=== PATIENT | male | born 1970 | race Caucasian/White ===

== ENCOUNTER 2022-01-03 06:38 | Outpatient (REF) | payer OTHER, SELFPAY ==
[2022-01-03 07:00] LABS: MANUAL DIFF FLAG NO
[2022-01-03 07:17] LABS: Basophils Percent Auto 0.3 % (0-2); Eosinophils Absolute Auto 0.2 X10*3/uL (0.0-0.4); Eosinophils Percent Auto 3.3 % (0-4); Hematocrit 46.7 % (42.0-52.0); Imm Gran Abs Auto 0.01 X10*3/uL (0.00-0.03); Imm Gran Pct Auto 0.2 % (0.0-0.4); Lymphocytes Absolute Auto 1.5 X10*3/uL (1.2-4.9); Mean Corpuscular HGB Conc 34.3 g/dl (31.0-36.0); Mean Corpuscular Volume 90.5 fL (80.0-98.0); Mean Platelet Volume 9.9 fL (9.4-12.4); Monocytes Absolute Auto 0.6 X10*3/uL (0.1-1.2); Monocytes Percent Auto 8.5 % (2-11); Neutrophils Absolute Auto 4.3 x10*3/uL (2.0-8.3); Neutrophils Percent Auto 64.7 % (45-73); Platelet Count 221 X10*3/uL (160-400); Red Blood Count 5.16 X10*6/uL (4.60-5.80); Red Cell Distribution Width 12.2 % (11.0-16.0); White Blood Count 6.6 X10*3/uL (4.8-10.8)
[2022-01-03 07:22] LABS: Estimated Average Glucose 103 mg/dL; Hemoglobin A1c % 5.2 %
[2022-01-03 07:49] LABS: Alanine Aminotransferase 22 U/L (0-40); Albumin Level 4.2 g/dL (3.5-5.0); Alkaline Phosphatase 70 U/L (39-117); Anion Gap 11 (12-20); Aspartate Amino Transferase 20 U/L (5-37); Bilirubin Total 0.4 mg/dL (0.0-1.0); Blood Urea Nitrogen 19 mg/dL (9-16); Calcium 9.4 mg/dL (8.4-10.2); Carbon Dioxide 28 mmol/L (22-29); Chloride 104 mmol/L (96-108); Cholesterol 208 mg/dL; Estimated Glomerular Filt Rate > 60; Glucose Random 103 mg/dL (60-115); HDL Cholesterol 46 mg/dL; LDL Cholesterol Calculated 125 mg/dl; Potassium 4.8 mmol/L (3.3-5.1); Sodium 138 mmol/L (135-145); Total Protein 7.1 g/dL (6.5-8.0); Triglycerides 188 mg/dL
[2022-01-03 08:12] LABS: Free T4 (Free Thyroxine) 0.93 ng/dL (0.71-1.85); Prostate Specific Antigen Scr 0.14 ng/mL (<0.05-4.0); Thyroid Stimulating Hormone 0.75 uIU/mL (0.32-4.0)
[2022-01-03 08:56] LABS: Folate 8.9 ng/mL (> or = 4.0); Vitamin B12 171 pg/mL (200-900)
== END 2022-01-03 06:39 | disposition home or self-care (01) ==
LOC: HO.LAB 06:38
PROVIDERS: PCP Internal Medicine; Visit Provider Internal Medicine
DX: Z12.5 Encounter for screening for malignant neoplasm of prostate (principal); R73.02 Impaired glucose tolerance (oral); E78.00 Pure hypercholesterolemia, unspecified; I10 Essential (primary) hypertension
CPT/HCPCS: 36415; 80053; 80061; 82607; 82746; 83036; 84153; 84439; 84443; 85025

== ENCOUNTER 2022-07-26 06:54 | Outpatient (REF) | payer OTHER, SELFPAY ==
[2022-07-26 08:14] LABS: Alanine Aminotransferase 21 U/L (0-40); Albumin Level 4.4 g/dL (3.5-5.0); Alkaline Phosphatase 74 U/L (39-117); Anion Gap 13 (12-20); Aspartate Amino Transferase 19 U/L (5-37); Bilirubin Total 0.3 mg/dL (0.0-1.0); Blood Urea Nitrogen 18 mg/dL (9-16); Calcium 10.2 mg/dL (8.4-10.2); Carbon Dioxide 25 mmol/L (22-29); Chloride 106 mmol/L (96-108); Estimated Glomerular Filt Rate > 60; Glucose Random 112 mg/dL (60-115); Sodium 139 mmol/L (135-145); Total Protein 7.3 g/dL (6.5-8.0)
[2022-07-26 08:43] LABS: Folate 10.5 ng/mL (> or = 4.0); Vitamin B12 387 pg/mL (200-900)
[2022-07-30 22:08] LABS: Intrinsic Factor Antibodies Negative (Negative)
[2022-08-07 13:49] LABS: Parietal Cell Antibody 26.1 Unit (<=20.0)
== END 2022-07-26 06:55 | disposition home or self-care (01) ==
LOC: HO.LAB 06:54
PROVIDERS: Absent Provider Internal Medicine; PCP Internal Medicine; Visit Provider Nurse Practitioner Family
DX: E53.8 Deficiency of other specified B group vitamins (principal); I10 Essential (primary) hypertension
CPT/HCPCS: 36415; 80053; 82607; 82746; 83516; 86340

== ENCOUNTER 2023-01-18 10:33 | Day surgery (SDC) | payer OTHER, SELFPAY ==
--- NOTE | 2023-01-17 10:26 | HO.ANESPROP2 ---
HPI - Anesthesia Eval Consult details Narrative: 52yo M for?Colonoscopy PMFSH Active Problems Active Problems: All Active Problems (Updated 10/08/22 @ 09:53 by Estefany Ball MD) Anxiety (Acute) Low vitamin B12 level (Acute) Inguinal hernia bilateral, non-recurrent (Acute) Hemorrhoid (Acute) Colon cancer screening (Acute) Annual physical exam (Acute) Impaired glucose tolerance (Acute) Hypertension (Acute) Hypercholesterolemia (Acute) Past Medical History Medical History Hypercholesterolemia Hypertension Impacted cerumen of right ear Impaired glucose tolerance Pharyngitis Family History Family History Father Liver cancer Mother No problems noted. Brother Substance abuse Sister No problems noted. Son Adopted Daughter No problems noted. Daughter No problems noted. Surgical History Surgical History History of dental surgery Social History Social History Housing: Apartment Alcohol intake: current Patient Tobacco Use Status: Former Tobacco user Tobacco use type: Cigarette Years Smoked: quit 2015 e-Cigarette/Vaping Use: Never Used Second Hand Smoke Exposure: No service: No Current occupational status: employed Cognitive needs: No Hearing needs: No Vision needs: Yes Meds Allergies Allergy/AdvReac Type Severity Reaction Status Date / Time No Known Allergies Allergy Verified 01/30/23 08:28 Home Medications Medication Instructions Recorded Confirmed Last Taken Type ibuprofen 200 mg tablet (Motrin IB) 200 mg PO Q6H PRN Back Pain 11/27/21 01/18/23 01/16/23 History multivitamin (One-A-Day Essential 1 tab PO DAILY 11/27/21 01/18/23 01/07/23 History tablet) Exam Exam Date and Time: January 17, 2023 1026 Assessment and Plan Assessment Anesthesia Assessment: Chart Reviewed
[2023-01-18 11:28] VITALS: BMI 26.2
--- NOTE | 2023-01-18 11:36 | P.HPSUR_ITS ---
Pre-Procedural Eval Section A Date of Service: 01/18/23 The patient is an INPATIENT: No The History & Physical has been completed within 30 days and I have reviewed it.: No Section B Chief Complaint: screening for malignant neoplasm of colon Relevant Family History (Specify if Yes): No Relevant Social History: Tobacco Use (former smoker) Present Medications: see Short Stay Collaborative assessment Medical History: Significant History (hypertension, hypercholesterolemia) History of Previous Operations: Relevant previous surgery/procedure and date(s) (History of dental surgery) Allergies: Allergies Allergy/AdvReac Type Severity Reaction Status Date / Time No Known Allergies Allergy Verified 10/08/22 09:52 Review of Systems Sugical H&P ROS: Negative: Constitution, Cardiovascular, Respiratory and Gastroi ntestinal Exam Surgical H&P Exam: Normal: Heart, Normal: Lungs, Normal: Extremities and Normal: Abdomen Plan Diagnosis/Plan: Unchanged I have reviewed the history and physical and performed a pertinent physical examination on my patient. No changes have occurred unless specified. Time Spent With Patient Time: Total time managing care of this patient today ____ minutes.
[2023-01-18] MEDS: Lactated Ringers 1,000 ML 100 ML IVCONT (11:58)
--- NOTE | 2023-01-18 12:22 | HO.ANESPROP2 ---
[facility] Active Problems Active Problems: All Active Problems (Updated 10/08/22 @ 09:53 by Estefany Ball MD) Anxiety (Acute) Low vitamin B12 level (Acute) Inguinal hernia bilateral, non-recurrent (Acute) Hemorrhoid (Acute) Colon cancer screening (Acute) Annual physical exam (Acute) Impaired glucose tolerance (Acute) Hypertension (Acute) Hypercholesterolemia (Acute) Past Medical History Medical History Hypercholesterolemia Hypertension Impacted cerumen of right ear Impaired glucose tolerance Pharyngitis Family History Family History Father Liver cancer Mother No problems noted. Brother Substance abuse Sister No problems noted. Son Adopted Daughter No problems noted. Daughter No problems noted. Family history of problems with anesthesia: No Surgical History Surgical History History of dental surgery History of Problems with Anesthesia: No Social History Social History Housing: Apartment Alcohol intake: current Patient Tobacco Use Status: Former Tobacco user Tobacco use type: Cigarette Years Smoked: quit 2015 e-Cigarette/Vaping Use: Never Used Second Hand Smoke Exposure: No Use of substances other than those prescribed or required for medical reasons: Yes Substance Use Frequency: Weekly Are you DNR?: No Advance Directives: No Advance Directives Information Provided: Yes service: No Current occupational status: employed Cognitive needs: No Hearing needs: No Vision needs: Yes Meds Allergies Allergy/AdvReac Type Severity Reaction Status Date / Time No Known Allergies Allergy Verified 10/08/22 09:52 Active Medications: Current Medications Lactated Ringer's (Lr) 1,000 mls @ 100 mls/hr IVCONT .Q10H SALLY Last Admin: 01/18/23 11:58 Dose: 100 mls/hr Home Medications Medication Instructions Recorded Confirmed Last Taken Type ibuprofen 200 mg tablet (Motrin IB) 200 mg PO Q6H PRN Back Pain 11/27/21 01/18/23 01/16/23 History multivitamin (One-A-Day Essential 1 tab PO DAILY 05/09/22 06/30/23 06/19/23 History tablet) Exam Exam Date and Time: January 18, 2023 1222 Height,Weight and Vital Signs: Height 6 ft Weight 87.7 kg Airway Mallampati Class: II TM Dist: >3cm Neck ROM: Full Heart: RRR Lungs: CTA Assessment and Plan Final Anesthetic Review Family History of Problems with Anesthesia: No History of Problems with Anesthesia: No NPO: Yes ASA Class: II Final Preanesthetic Review: Meds/Allgs Chart Reviewed, Consent Obtained/Reviewed and Anes Risks/Benef Reviewed Patient Risk: Low Procedure Risk: Low Anesthetic Plan Anesthetic Plan: MAC: Disposition: Standard PACU
--- NOTE | 2023-01-18 12:35 | W.PM.OPN ---
Operative Note Operative Note Date of Service: 01/18/23 Narrative: COLONOSCOPY TILL CECUM WITH SNARE POLYPECTOMY, SUBMUCOSAL INJECTION AND HEMOCLIP PLACEMENT Pre-op diagnosis: Colon cancer screening Post-op diagnosis:? colon polyps, diverticulosis, hemorrhoids Endoscopist:? Hannah Holman MD Anesthesia:?MAC Consent: Indications for the procedure and potential complications of bleeding, perforation, reaction to medications and missed diagnosis were discussed with the patient and informed consent was obtained. Instrument: Olympus CF H 190 L variable stiffness adult colonoscope Monitoring: Vital signs and clinical assessment, intermittent blood pressure monitoring, continuous EKG monitoring, Pulse oximetry and Carbon Dioxide monitoring were done throughout the procedure. Please see anesthesia flowsheet. Colon withdrawl time was 25 minutes. Procedure: The patient was placed in the left lateral decubitis position and pre-procedure medications were administered. After a digital rectal examination of the ano-rectum, the video colonoscope was inserted into the rectum and advanced through the colon to the cecum. The colonoscope was slowly withdrawn in a retrograde panoramic fashion and the colon mucosa was carefully examined including a retroflexed view of the rectum. Findings and interventions are described below. Procedure Difficulty: Without difficulty Findings: Terminal Ileum: Not evaluated Cecum: Normal Ascending Colon: Normal Transverse Colon: Normal Descending Colon: Moderate diverticulosis Sigmoid Colon: A 3 cms pedunculated polyp at 25 cms - removed with a hot snare. Polypectomy site was closed with one hemoclip and marked by román ink. Moderate diverticulosis Rectum: One 10 mm diminutive appearing polyp - removed with a cold snare Ano-rectum: Moderate internal hemorrhoids Colon preparation: Excellent Impression and Post Procedure Diagnosis: Colonoscopy Findings: One large and one medium sized polyps removed Moderate diverticulosis seen in the left colon Moderate hemorrhoids on retroflexed exam. Plan: Await pathology results Patient has an appointment on 01/30/23 in the GI Clinic with Carmella Michaud NP. Repeat Colonoscopy interval based on path results - in 3 years if polyps are adenomatous and 10 years if polyps are hyperplastic. FU flexible sigmoidoscopy in 3-4 months to check polypectomy site in the sigmoid colon at 25 cms (OK to use fleet enemas for flex sig prep since polyp was completely excised on biopsy). Above findings were reviewed with the patient and colon polyps and diverticulosis handouts were given in the discharge area BIOPSIES SHOWED: A.? Colon, sigmoid, polyp at 25 cm:? Tubulovillous adenoma with entrapped glands, completely excised; negative for high-grade dysplasia and carcinoma.? B.? Colon, rectal polyp:? Hyperplastic polyp.
[2023-01-18 13:28] VITALS: BP 131/90; PULSE 62; RESP 16; TEMP 36.4; O2SAT 99
[2023-01-18 13:43] VITALS: BP 140/93; PULSE 53; RESP 18; TEMP 36.1; O2SAT 100
== END 2023-01-18 14:15 | disposition home or self-care (01) ==
PROVIDERS: PCP Internal Medicine; Visit Provider Internal Medicine Gastroenterology
PROC: 0DJD8ZZ Inspection of Lower Intestinal Tract, Via Natural or Artificial Opening Endoscopic (ICD-10-PCS; CPT 45378; principal; 2023-01-18 12:20)
DX: Z12.11 Encounter for screening for malignant neoplasm of colon (principal); D12.5 Benign neoplasm of sigmoid colon; K62.1 Rectal polyp; K57.30 Diverticulosis of large intestine without perforation or abscess without bleeding; K64.8 Other hemorrhoids; I10 Essential (primary) hypertension; E78.00 Pure hypercholesterolemia, unspecified; R73.01 Impaired fasting glucose; Z79.1 Long term (current) use of non-steroidal anti-inflammatories (NSAID); Z79.899 Other long term (current) drug therapy; Z87.891 Personal history of nicotine dependence
CPT/HCPCS: 45385; 45381; 88305

== ENCOUNTER 2023-01-30 08:15 | Outpatient (AMB) | payer OTHER, SELFPAY ==
--- NOTE | 2023-01-30 08:22 | A.OFFVIS_ITS ---
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 No bowel or upper GI? problems No ID problems He denies any cardiac or respiratory problems There is no known FHX crc or polyps. ? ? ? Medications: New peg 3350-electroly demetrius 236-22.74-6.74 -5.86 gram (Golyt tomas) ?? until feca l effluent is john r; do not exceed a total volume of 2 ,000 mL 240 mL? PO Q10M 1 day 4,000 mL 0RF Z12.11 - Encounter for screening for malignant neoplas m of colon COLONOSCOPY 01/18/23 Findings: Terminal Ileum: Not evaluated Cecum:? Normal Ascending Colon:? Normal Transverse Colon:? Normal Descending Colon:? Moderate diverticulosis Sigmoid Colon:? A 3 cms pedunculated polyp at 25 cms - removed with a hot snare. Polypectomy site was closed with one hemoclip and marked by román ink. Moderate diverticulosis Rectum:? One 10 mm diminutive appearing polyp - removed with a cold snare Ano-rectum:? Moderate internal hemorrhoids Colon preparation: Excellent ? Impression and Post Procedure Diagnosis: Colonoscopy Findings: ?One large and one medium sized polyps removed Moderate diverticulosis seen in the left colon Moderate hemorrhoids on retroflexed exam. Plan: Await pathology results Patient has an appointment on 01/30/23 in the GI Clinic with? Carmella Michaud, SHIRT B[employer]ER. Repeat Colonoscopy interval based on path results - in 3 years if polyps are adenomatous and 10 years if polyps are hyperplastic.? FU flexible sigmoidoscopy in 3-4 months to check polypectomy site in the sigmoid colon at 25 cms (OK to use fleet enemas for flex sig prep since polyp was completely excised on biopsy). Above findings were reviewed with the patient and colon polyps and diverticulosis handouts were given in the discharge area BIOPSIES SHOWED: A.? Colon, sigmoid, polyp at 25 cm:? Tubulovillous adenoma with entrapped glands, completely excised; negative for high-grade dysplasia and carcinoma.? B.? Colon, rectal polyp:? Hyperplastic polyp. TODAY'S VISIT The procedure needs to be repeated in 3-4 months due to the finding of a tubulovillous adenoma in the sigmoid colon.. The procedure was well tolerated. The results were explained and the patient is agreeable to the follow-up interval as stated. The bowel pattern has returned to normal. Education was provided to tell any 1st degree relatives about their findings to be sure that they are screened by age 45. Educated that they will be put on a recall list when it is time for their repeat scope but should they move out of state or away from the hospital they will need to remember along with their primary to repeat the procedure in a timely fashion to avoid any adverse complications. I will see him after his next procedure. [facility] Medical History Hypercholesterolemia Hypertension Impacted cerumen of right ear Impaired glucose tolerance Pharyngitis Surgical History History of dental surgery Family History Father Liver cancer Mother No problems noted. Brother Substance abuse Sister No problems noted. Son Adopted Daughter No problems noted. Daughter No problems noted. Social History Housing: Apartment Alcohol intake: current Patient Tobacco Use Status: Former Tobacco user Tobacco use type: Cigarette Years Smoked: quit 2015 e-Cigarette/Vaping Use: Never Used Second Hand Smoke Exposure: No service: No Current occupational status: employed Cognitive needs: No Hearing needs: No Vision needs: Yes Review of Systems Const Denies fatigue, Denies fever(s), Denies night sweats, Denies poor appetite and Denies weight loss Eyes Details: glasses Reports requires corrective lenses ENT Reports Normal hearing present, Denies dental pain, Denies dysphagia, Denies hearing loss, Denies mouth pain, Denies odynophagia, Denies throat swelling, Denies tongue swelling and Reports other (Dentition adequate) Card Reports no additional complaints Resp Reports no additional complaints GI Denies abdominal pain, Denies melena, Denies bloating, Denies hematochezia, Denies constipation, Denies GI cramping, Denies dysphagia, Denies excessive flatus, Denies early satiety, Denies heartburn, Denies diarrhea, Denies nausea, Denies odynophagia, Denies vomiting and Denies hematemesis Skin/Breast Denies pruritus, Denies lesions, Denies rash and Denies jaundice Neuro Reports Normal hearing present and Denies Abnormal speech present Endo Denies fatigue Aller/Immun Denies throat swelling and Denies tongue swelling Physical Exam Vital Signs: Last Vital Signs Pulse 66 01/30/23 08:28 BP 144/87 H 01/30/23 08:28 BMI result Body Mass Index 24.4 Const General: cooperative, no acute distress, well developed and well groomed Nutritional Appearance: average body habitus and well nourished Orientation/consciousness: oriented to person, oriented to place and oriented to time Limitations: No language barrier HEENT Head: Yes normocephalic and Yes atraumatic Eyes General: appearance normal, both eyes and all related structures Pupils: Equal, round and reactive pupils present Neck Neck: Yes normal visual inspection and Yes no lymphadenopathy Thyroid: Thyroid normal Resp Effort & Inspection: normal respiratory effort and able to speak in complete sentences Auscultation: clear to auscultation bilaterally Cardio Rate: regular rate Rhythm: regular rhythm Heart sounds: Normal, physiologic split S2 sound present Peripheral pulses: radial pulses present and posterior tibial pulses present GI Inspection: No distended and No Abdominal panniculus present Palpation (GI): Soft to palpation, nontender, no guarding, not rigid and No hepatosplenomegaly present Percussion: Yes normal to percussion Auscultation: normal bowel sounds Rectal Exam - Male: Yes deferred Skin General skin exam: no rashes or lesions noted, turgor normal, skin not dry, no jaundice, No spider nevi and no striae Rashes: no rashes Nails: normal Neuro General: oriented to person, oriented to place and oriented to time Cranial nerves: Yes Equal, round and reactive pupils present and Yes Normal hearing present Speech: No Abnormal speech present Extrem General: Yes normal to inspection, No clubbing, No cyanosis and No edema Psych Appearance: grossly normal and well kempt Mental Status: mental status grossly normal Speech and movement: Normal speech and movement present Affect: normal affect Attitude: cooperative Thought process: Normal thought process present and not confabulating Thought content: Normal thought content present Insight: Fair insight present (Psych) Judgement: Fair judgement present (Psych) Assessment & Plan Assessment & Plan (1) Tubulovillous adenoma of colon: Comment: 2022 scope repeat 3-4 months Code(s): D12.6 - Benign neoplasm of colon, unspecified Plan: The procedure needs to be repeated in 3-4 months due to the finding of a tubulovillous adenoma in the sigmoid colon.. The procedure was well tolerated. The results were explained and the patient is agreeable to the follow-up interval as stated. The bowel pattern has returned to normal. Education was provided to tell any 1st degree relatives about their findings to be sure that they are screened by age 45. Educated that they will be put on a recall list when it is time for their repeat scope but should they move out of state or away from the hospital they will need to remember along with their primary to repeat the procedure in a timely fashion to avoid any adverse complications. I will see him after his next procedure. Coding Level of Care Code Est Pt Level 3 (37253) Diagnoses Tubulovillous adenoma of colon D12.6
[2023-01-30 08:28] VITALS: BP 144/87; PULSE 66; BMI 24.4
== END 2023-01-30 08:42 | disposition home or self-care (01) ==
PROVIDERS: PCP Internal Medicine; Visit Provider Nurse Practitioner
DX: D12.6 Benign neoplasm of colon, unspecified (principal)
CPT/HCPCS: 99213

== ENCOUNTER → 2023-01-30 08:15 | Outpatient (BNVA) | payer OTHER, SELFPAY | PROVIDERS: PCP Internal Medicine; Visit Provider Nurse Practitioner ==

== ENCOUNTER → 2023-01-31 11:26 | Outpatient (BNVA) | payer OTHER, SELFPAY | PROVIDERS: PCP Internal Medicine; Visit Provider Physician Assistant | DX: M25.512 Pain in left shoulder (principal) | CPT/HCPCS: 99204 ==

== ENCOUNTER → 2023-02-06 10:23 | Outpatient (BNVA) | payer OTHER, SELFPAY | PROVIDERS: PCP Internal Medicine; Visit Provider Physician Assistant | DX: M24.812 Other specific joint derangements of left shoulder, not elsewhere classified (principal) | CPT/HCPCS: 99214 ==

== ENCOUNTER → 2023-02-22 09:52 | Outpatient (BNVA) | payer OTHER, SELFPAY | PROVIDERS: PCP Internal Medicine; Visit Provider Internal Medicine | DX: M24.812 Other specific joint derangements of left shoulder, not elsewhere classified (principal) | CPT/HCPCS: 99213 ==

== ENCOUNTER 2023-03-07 10:18 | Outpatient (REF) | payer OTHER, SELFPAY ==
--- NOTE | ~2023-03-07 | XR_ITS ---
EXAMINATION: XR SHOULDER, LEFT CLINICAL INFORMATION: Pain. COMPARISON: Radiographs dated 01/31/2023. TECHNIQUE: AP neutral and scapular Y views of the left shoulder are submitted. FINDINGS: Bony alignment and mineralization are normal. The glenohumeral joint is intact and shows mild osteoarthritic change. The acromioclavicular and coracoclavicular intervals are normal. There is moderate osteoarthritic change of the left acromioclavicular joint. No fracture or dislocation is seen. There is no soft tissue calcifications foreign body. No left pneumothorax is seen. XR/XR shoulder LT min 2V IMPRESSION: 1. There is mild osteoarthritic change of the left glenohumeral joint, and moderate osteoarthritic change is seen of the left acromioclavicular joint. 2. No fracture or dislocation is seen.
== END 2023-03-07 10:19 | disposition home or self-care (01) ==
LOC: HO.HOSX 10:18
PROVIDERS: Visit Provider Orthopaedic Surgery
DX: M25.512 Pain in left shoulder (principal)
CPT/HCPCS: 73030; 99202

== ENCOUNTER 2023-03-07 11:19 | Outpatient (AMB) | payer OTHER, SELFPAY ==
[2023-03-07 11:31] VITALS: BMI 24.3
--- NOTE | 2023-03-07 11:31 | MHC.OFFVIS ---
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 States he was closing the dumpster lid and felt a ripped in his shoulder. Seen with work [employer] same day who ordered xrays and Rx'd P.T. States he also has an MRI appt on 03/15/23. Currently states he has limited ROM and weakness. He has been going to formal physical therapy which gives him only mild relief. He has also tried Tylenol and anti-inflammatory medicines which gave him minimal relief. The patient states that he has difficulty sleeping at night because of his pain. The patient reports weakness with lifting his left hand above shoulder height. Allergies No Known Allergies Allergy (Verified 03/07/23 11:32) Medication List - Last Reconciled 03/07/23 by Wilbur Girard MD ibuprofen (Motrin IB) 200 mg PO Q6H PRN ibuprofen 800 mg PO TID lisinopril 10 mg PO DAILY multivitamin (One-A-Day Essential tablet) 1 tab PO DAILY PFSH Medical History Hypercholesterolemia Hypertension Impacted cerumen of right ear Impaired glucose tolerance Pharyngitis Surgical History History of dental surgery Family History Father Liver cancer Mother No problems noted. Brother Substance abuse Sister No problems noted. Son Adopted Daughter No problems noted. Daughter No problems noted. Social History (Updated 03/07/23 @ 11:32 by MOHIT Laura) Housing: Apartment Alcohol intake: current Patient Tobacco Use Status: Former Tobacco user Tobacco use type: Cigarette Years Smoked: quit 2015 e-Cigarette/Vaping Use: Never Used Second Hand Smoke Exposure: No service: No Current occupational status: employed Current occupation: [employer] Cognitive needs: No Hearing needs: No Vision needs: Yes Physical Exam Vital Signs: BMI result Body Mass Index 24.3 Const Other: Well-nourished well-developed very friendly male awake alert and oriented x3 in no acute distress Extrem Other: Bilateral upper extremity examination shows good capillary refill, no skin lesions noted, normal sensation light touch Left shoulder examination shows decreased range of motion when compared his shoulder, 4/5 strength with supraspinatus testing, positive impingement signs, tenderness over his acromioclavicular joint, no instability Results Reviewed Results Reviewed: X-rays of the patient's left shoulder show severe acromioclavicular joint narrowing, a type 2 acromion, no acute bony abnormalities Assessment & Plan Assessment & Plan (1) Left shoulder pain: Code(s): M25.512 - Pain in left shoulder Plan Mr. Odonnell presents with left shoulder pain possibly due to a full-thickness rotator tear. I agree with the plan for the patient to have an MRI as scheduled next week. I will contact him by phone once the MRI results are available. He will continue with his physical therapy exercises in meantime. I spent 22 minutes in reviewing the patient's records and imaging studies, seeing the patient and documenting in the medical record. Orders: Orders XR shoulder LT min 2V 03/07/23 M25.512 - Pain in left shoulder Medications: New oxycodone-acetaminophen 5-325 mg (Percocet) Partial Fill upon patient request. 1 tab PO Q12H PRN 30 tabs 0RF pain Coding Level of Care Code New Pt Level 2 (64494) Diagnoses Left shoulder pain M25.512
== END 2023-03-07 12:03 | disposition home or self-care (01) ==
PROVIDERS: PCP Internal Medicine; Visit Provider Orthopaedic Surgery
DX: M25.512 Pain in left shoulder (principal)
CPT/HCPCS: 99202

== ENCOUNTER 2023-03-15 14:27 | Outpatient (REF) | payer OTHER, SELFPAY ==
--- NOTE | ~2023-03-15 | MR_ITS ---
EXAMINATION: MR SHOULDER WITHOUT CONTRAST, LEFT CLINICAL INFORMATION: Left shoulder pain. Derangement. Rotator cuff tendon tear. COMPARISON: Most recent left shoulder radiographs dated 03/07/2023. TECHNIQUE: Multisequence MR imaging of the left shoulder was obtained without contrast on a high field strength scanner. FINDINGS: ROTATOR CUFF: Mild supraspinatus tendinosis. There is focal insertional intrasubstance partial tearing measuring 0.4 x 0.4 cm with linear extension proximally within the supraspinatus tendon fibers. No full-thickness rotator cuff tendon tear. No muscle atrophy or fatty infiltration. BICEPS: Intact. CORACOACROMIAL ARCH: The undersurface of the acromion is curved with no subacromial spur. Severe acromioclavicular osteoarthritis. LABRUM/CAPSULE: Heterogeneity within the posterosuperior labrum which could represent normal variation versus mild degeneration. No displaced tear. GLENOHUMERAL JOINT/MARROW: Intact articular cartilage. Focal degenerative cystic change within the greater tuberosity. MR/MR shoulder LT wo con IMPRESSION: 1. Mild supraspinatus tendinosis with focal insertional intrasubstance partial tearing measuring 0.4 x 0.4 cm with linear extension proximally within the tendon fibers. No full-thickness rotator cuff tendon tear. 2. Severe acromioclavicular osteoarthritis. 3. Heterogeneity within the posterosuperior labrum which could represent normal variation versus mild degeneration. No displaced labral tear.
== END 2023-03-15 14:28 | disposition home or self-care (01) ==
LOC: HO.MRI 14:27
PROVIDERS: PCP Internal Medicine; Visit Provider Physician Assistant Medical
DX: M75.102 Unspecified rotator cuff tear or rupture of left shoulder, not specified as traumatic (principal)
CPT/HCPCS: 73221

== ENCOUNTER → 2023-03-19 08:08 | Outpatient (BNVA) | payer OTHER, SELFPAY | PROVIDERS: PCP Internal Medicine; Visit Provider Internal Medicine | DX: M25.512 Pain in left shoulder (principal) | CPT/HCPCS: 99213 ==

== ENCOUNTER 2023-03-20 10:16 | Outpatient (AMB) | payer OTHER, SELFPAY ==
--- NOTE | 2023-03-20 10:17 | A.OFFVIS_ITS ---
Intake Vital Signs 03/20/23 10:18 Height 6 ft Weight 179 lb BMI 24.3 Intake Visit Reasons: OV-left shoulder injection Intake Note: Colton is a 52 year old right hand dominant male who presents with complaints of left shoulder pain. He describes his pain as sharp in nature. He did injure his shoulder while working when he was closing a dumpster lid. He has tried Tylenol and anti-inflammatory medicines which gave him minimal relief. He has also done stretching exercises which gave him only mild relief. Allergies No Known Allergies Allergy (Verified 03/20/23 10:21) Medication List - Last Reconciled 03/20/23 by Wilbur Girard MD ibuprofen (Motrin IB) 200 mg PO Q6H PRN ibuprofen 800 mg PO TID lisinopril 10 mg PO DAILY multivitamin (One-A-Day Essential tablet) 1 tab PO DAILY oxycodone-acetaminophen 5-325 mg (Percocet) 1 tab PO Q12H PRN PFSH Medical History Hypercholesterolemia Hypertension Impacted cerumen of right ear Impaired glucose tolerance Pharyngitis Surgical History History of dental surgery Family History Father Liver cancer Mother No problems noted. Brother Substance abuse Sister No problems noted. Son Adopted Daughter No problems noted. Daughter No problems noted. Social History Housing: Apartment Alcohol intake: current Patient Tobacco Use Status: Former Tobacco user Tobacco use type: Cigarette Years Smoked: quit 2015 e-Cigarette/Vaping Use: Never Used Second Hand Smoke Exposure: No service: No Current occupational status: employed Current occupation: [employer] Cognitive needs: No Hearing needs: No Vision needs: Yes Physical Exam Vital Signs: BMI result Body Mass Index 24.3 Const Other: Well-nourished well-developed very friendly male awake alert and oriented x3 in no acute distress Extrem Other: Left shoulder examination shows almost full range of motion when compared to his right shoulder, 4+ out of 5 strength with supraspinatus testing, positive impingement signs, tenderness over his acromioclavicular joint, no instability Office Procedures Joint Injection/Drain Joint Injection/Drain Primary Site: left shoulder Prep: site was prepped using aseptic technique Injected: 40 mg of, Kenalog and 1% plain lidocaine Procedure: The patient tolerated the procedure well Coding 30239 - Large joint Procedure code (CPT) selection complete Results Reviewed Results Reviewed: 03/20/23 10:17 Lidocaine HCl 2 % MPF [Xylocaine 2 % MPF] 5 ml .ROUTE .STK-MED ONE Triamcinolone Acetonide [Kenalog-40] 40 mg .ROUTE .STK-MED ONE MRI of the patient's left shoulder show severe acromioclavicular joint narrowing, type 2 acromion, signal change within the supraspinatus tendon due to rotator cuff tendinosis versus partial-thickness tearing, no full-thickness rotator cuff tear noted Assessment & Plan Assessment & Plan (1) Impingement syndrome of left shoulder: Code(s): M75.42 - Impingement syndrome of left shoulder Plan Mr. Odonnell presents with right shoulder pain due to impingement syndrome, acromioclavicular joint arthritis and rotator cuff tendinosis versus partial- thickness tearing. I had a lengthy discussion with the patient regarding the treatment options. The risks and benefits of a cortisone injection were discussed at length with the patient. The patient wished to proceed. Patient tolerated the left shoulder subacromial cortisone injection well. He will continue with his home stretching program to prevent stiffness. He will contact me prior to his follow-up appointment in 2-3 months should any questions or concerns arise. Feel free to call me at any time should questions regarding his orthopedic management arise. I spent 22 minutes in reviewing the patient's records and imaging studies, seeing the patient and documenting in the medical record. Orders: Orders AMB Joint Injection/Aspiration Today M75.42 - Impingement syndrome of left shoulder Coding Level of Care Code Est Pt Level 2 (90219) Diagnoses Impingement syndrome of left shoulder M75.42 CPT Codes Coding - 70620 Large joint: 68385 - Large joint ([id number])
[2023-03-20 10:18] VITALS: BMI 24.3
== END 2023-03-20 10:47 | disposition home or self-care (01) ==
PROVIDERS: PCP Internal Medicine; Visit Provider Orthopaedic Surgery
DX: M75.42 Impingement syndrome of left shoulder (principal)
CPT/HCPCS: 20610; 99214

== ENCOUNTER → 2023-03-20 10:16 | Outpatient (BNVA) | payer OTHER, SELFPAY | PROVIDERS: PCP Internal Medicine; Visit Provider Orthopaedic Surgery | DX: M75.42 Impingement syndrome of left shoulder (principal) | CPT/HCPCS: 20610; J3301 ==

== ENCOUNTER 2023-03-21 07:00 | Outpatient (RCR) | payer OTHER, SELFPAY ==
--- NOTE | 2023-02-08 12:23 | MHC.PT.EP ---
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 HE WORKS FULL-TIME IN [employer] FOR [employer] -> HE HAS BEEN OOW SINCE HIS INJURY. OBJECTIVELY, THE Pt HAS DECR POSTURAL AWARENESS, LIMITED ROM IN HIS LEFT SH, PAIN LIMITING STRENGTH OF LEFT SH COMPLEX, AND (+) Lt SH NEER'S/ SUSAN'S LOGAN ROSANNE/EMPTY CAN TESTS. HE HAS (+) TTP TO Lt ANT GH, Lt AC Jt, AND Lt POSTERIOR RC (TERES, INFRASPINATUS). FUNCTIONALLY, THE Pt IS OOW LIGHT DUTY UNAVAIL, DECR SLEEPING, LIMITED LIFTING, OPERATING TOOLS, REACHING-> SPONTANEOUS MOTIONS DUE TO PAIN IN Lt ANT GH AND POST RC. THE Pt IS AWAITING AN MRI-> HE WOULD BENEFIT FROM PT TO ADDRESS PAIN, ROM AND STRENGTH DEFICITS (TERES, SUBSCAP,INFRASPIN), AND GUIDE HIM IN MEETING HIS GOALS OF RTW AND REG ADLs. Frequency and Duration: The patient will be seen 2 x WK x 8 WKS Short Term Goals: *Pt'S Lt SH PAIN DECR TO 2-09/28 *Pt INDEP SELF-CORRECT POSTURE TO REDUCE Lt SH MECH STRESS *Pt DEMON IMPROVED AAROM-> AAROM Lt SH (-) Lt NEER'S, IMPROVED SUSAN'S SIGN LEFT Coating Manager Goals: *Pt INDEP HEP PROGR AND SELF-SX MGMT STRATEGIES FOR Lt SH Pt GRAD RESUME REG ADLs AND ULTIMATE GOAL OF RTW-> IMPROVED SPADI (AT EVAL 86/130) *Pt ACHIEVE WFL STRENGTH IN Lt SH COMPLEX/ SCAP REGION Treatment Plan: Modalities to reduce pain, spasms and effusion. Manual therapy to restore motion and function. Therapeutic exercise to improve strength and flexibility. Neuromuscular re-education for posture and balance. Therapeutic activities to return to functional activities of daily living. Electronically signed by: CANDE WEST PT Please sign and return to therapist. Thank you for your referral.
--- NOTE | 2023-03-21 10:43 | MHC.PT.DC ---
[facility] [place] Office [place] Office [place] Office [address] Brayden Ferris [address] [phone] F: [phone] F: [phone] F: [phone] F: [phone] Physical Therapy Discharge Report Diagnosis: LEFT RC INJURY Date of Surgery: Date of Evaluation: 02/08/23 Date of Discharge: 03/21/23 Treatments to Date: 11 Cancellations to Date: 1 No Shows to Date: 0 Discharge Status: Improved Function Independent with HEP Physician Discontinued Tx Discharge Summary: THE Pt HAS MET HIS PT GOALS TO MAX POTENTIAL AT THIS TIME - HE HAD A RECENT ORTHO F/U AND LEFT SH INJECTION - HE IS CLEARED TO RTW IN [address] BENAVIDES, THE Pt IS DISCHARGED FROM PT AT THIS TIME W HIS HEP, MORE EFFICIENT BILAT POST RC/SCAPULAR STAB, AND IMPROVED POSTURAL/ BODY MECH AWARENESS. Electronically signed by: CANDE WEST,PT Please sign and return to therapist. Thank you for your referral.
== END 2023-03-21 10:43 | disposition home or self-care (01) ==
LOC: HO.PT 07:00
PROVIDERS: PCP Internal Medicine; Visit Provider Physician Assistant
DX: S46.002D Unspecified injury of muscle(s) and tendon(s) of the rotator cuff of left shoulder, subsequent encounter (principal)
CPT/HCPCS: 97033; 97035; 97110; 97140; 97162; 97530

== ENCOUNTER → 2023-04-01 11:13 | Outpatient (BNVA) | payer OTHER, SELFPAY | PROVIDERS: PCP Internal Medicine; Visit Provider Internal Medicine ==

== ENCOUNTER 2023-05-22 09:10 | Outpatient (AMB) | payer OTHER, SELFPAY ==
--- NOTE | 2023-05-22 09:12 | A.OFFVIS_ITS ---
Intake Intake Visit Reasons: OV-left shoulder F/U Intake Note: Colton is a 52 year old male who presents today for a follow up of his left shoulder left shoulder W/C injury DOI 01/31/2023. last injection was done 03/20/23. Injection was helpful for about a month. He reports that he has incre ased pain with cold and rainy weather. He continues taking ibuprofen which gives him mild relief. He continues with his range of motion exercises to prevent further stiffness. Allergies No Known Allergies Allergy (Verified 05/22/23 09:14) Medication List - Last Reconciled 05/22/23 by Wilbur Girard MD ibuprofen (Motrin IB) 200 mg PO Q6H PRN ibuprofen 800 mg PO TID lisinopril 10 mg PO DAILY multivitamin (One-A-Day Essential tablet) 1 tab PO DAILY oxycodone-acetaminophen 5-325 mg (Percocet) 1 tab PO Q12H PRN PFSH Medical History Hypercholesterolemia Hypertension Impacted cerumen of right ear Impaired glucose tolerance Pharyngitis Surgical History History of dental surgery Family History Father Liver cancer Mother No problems noted. Brother Substance abuse Sister No problems noted. Son Adopted Daughter No problems noted. Daughter No problems noted. Social History Housing: Apartment Alcohol intake: current Patient Tobacco Use Status: Former Tobacco user Tobacco use type: Cigarette Years Smoked: quit 2015 e-Cigarette/Vaping Use: Never Used Second Hand Smoke Exposure: No service: No Current occupational status: employed Current occupation: [employer] Cognitive needs: No Hearing needs: No Vision needs: Yes Physical Exam Extrem Other: Left shoulder examination shows decreased range of motion when compared to his right shoulder, positive impingement signs Assessment & Plan Assessment & Plan (1) Impingement syndrome of left shoulder: Code(s): M75.42 - Impingement syndrome of left shoulder Plan: Mr. Odonnell presents with left shoulder pain and stiffness due to impingement syndrome, acromioclavicular joint arthritis and adhesive capsulitis. I had a lengthy discussion with the patient regarding the treatment options. At this point we will hold off on a not other cortisone injection because his last injection was on March 20. He will continue with his range of motion e xercises to prevent further stiffness. I will see him back in the beginning of June for repeat clinical examination. At that time we will further discuss another cortisone injection versus possible arthroscopic surgery. Feel free to call me at any time should questions regarding his orthopedic management arise. I spent 15 minutes in reviewing the patient's records and imaging studies, jasper patton the patient and documenting in the medical record. Coding Level of Care Code Est Pt Level 1 (51344) Diagnoses Impingement syndrome of left shoulder M75.42
== END 2023-05-22 09:26 | disposition home or self-care (01) ==
PROVIDERS: PCP Internal Medicine; Visit Provider Orthopaedic Surgery
DX: M75.42 Impingement syndrome of left shoulder (principal)
CPT/HCPCS: 99212

== ENCOUNTER → 2023-05-22 09:10 | Outpatient (BNVA) | payer OTHER, SELFPAY | PROVIDERS: PCP Internal Medicine; Visit Provider Orthopaedic Surgery | DX: M75.42 Impingement syndrome of left shoulder (principal) | CPT/HCPCS: 99211 ==

== ENCOUNTER 2023-07-09 06:32 | Day surgery (SDC) | payer OTHER, SELFPAY ==
[2023-07-09 06:36] VITALS: BMI 24.0
[2023-07-09] MEDS: Sodium Phosphate,Mono-Dibasic 133 ML ENEMA PR (06:49)
[2023-07-09 07:15] VITALS: BP 142/91; PULSE 62; RESP 16; TEMP 35.9; O2SAT 100
[2023-07-09] MEDS: Lactated Ringers 1,000 ML 80 ML IVCONT (07:18)
--- NOTE | 2023-07-09 07:23 | P.CONAN_ITS ---
HPI - Anesthesia Eval Consult details Narrative: 52 yo M presenting for flexible sigmoidoscopy [facility] Active Problems Active Problems: All Active Problems (Updated 03/20/23 @ 10:47 by Wilbur Girard MD) Impingement syndrome of left shoulder (Acute) Left shoulder pain (Acute) Tubulovillous adenoma of colon (Acute) Anxiety (Acute) Low vitamin B12 level (Acute) Inguinal hernia bilateral, non-recurrent (Acute) Hemorrhoid (Acute) Colon cancer screening (Acute) Annual physical exam (Acute) Impaired glucose tolerance (Acute) Hypertension (Acute) Hypercholesterolemia (Acute) Past Medical History Medical History Hypercholesterolemia Hypertension Impacted cerumen of right ear Impaired glucose tolerance Pharyngitis Family History Family History Father Liver cancer Mother No problems noted. Brother Substance abuse Sister No problems noted. Son Adopted Daughter No problems noted. Daughter No problems noted. Family history of problems with anesthesia: No Surgical History Surgical History History of dental surgery History of Problems with Anesthesia: No Social History Social History Housing: Apartment Alcohol intake: current Patient Tobacco Use Status: Former Tobacco user Quit Date: 8 years Tobacco use type: Cigarette Years Smoked: quit 2015 e-Cigarette/Vaping Use: Never Used Second Hand Smoke Exposure: No Use of substances other than those prescribed or required for medical reasons: Yes Substance Use Type Other:: Smokes Marijuana Substance Use Frequency: Weekly Are you DNR?: No Advance Directives: No Advance Directives Information Provided: Yes service: No Current occupational status: employed Current occupation: [employer] Cognitive needs: No Hearing needs: No Vision needs: Yes Meds Allergies Allergy/AdvReac Type Severity Reaction Status Date / Time No Known Allergies Allergy Verified 05/22/23 09:14 Active Medications: Current Medications Lactated Ringer's (Lr) 1,000 mls @ 80 mls/hr IVCONT .[id number] SALLY Last Admin: 07/09/23 07:18 Dose: 80 mls/hr Sodium Biphosphate/Sodium Phosphate (Sodium Phosphate,[place]-Dibasic 133 Ml Enema) 133 ml VA ONCE PRN PRN Reason: Pre-Op Surgical Prep Last Admin: 07/09/23 06:49 Dose: 133 ml Home Medications Medication Instructions Recorded Confirmed Last Taken Type ibuprofen 200 mg tablet (Motrin IB) 200 mg PO Q6H PRN Back Pain 11/27/21 07/09/23 07/06/23 History multivitamin (One-A-Day Essential 1 tab PO DAILY 11/27/21 05/22/23 01/07/23 History tablet) Exam Exam Date and Time: July 09, 202320 Height,Weight and Vital Signs: Height 6 ft Weight 80.399 kg Last Vital Signs Temp 96.7 F L 07/09/23 07:15 Pulse 62 07/09/23 07:15 Resp 16 07/09/23 07:15 BP 142/91 H 07/09/23 07:15 Pulse Ox 100 07/09/23 07:15 O2 Del Method Room Air 07/09/23 07:15 Airway Mallampati Class: II TM Dist: >3cm Neck ROM: Full Loose/Missing/Broken Teeth: No Heart: S1S2 Lungs: CTAB Assessment and Plan Assessment Anesthesia Assessment: Anesthesia Plan Discussed and Chart Reviewed Final Anesthetic Review Family History of Problems with Anesthesia: No History of Problems with Anesthesia: No NPO: Yes ASA Class: II Final Preanesthetic Review: No Changes in Pt Med Stat, Meds/Allgs Chart Reviewed, Consent Obtained/Reviewed and Anes Risks/Benef Reviewed Patient Risk: Low Procedure Risk: Low Anesthetic Plan Anesthetic Plan: MAC: and Agree w/ Assess. and Plan Disposition: Standard PACU
--- NOTE | 2023-07-09 07:23 | MHC.SHP ---
Pre-Procedural Eval Section A Date of Service: 07/09/23 The patient is an INPATIENT: No The History & Physical has been completed within 30 days and I have reviewed it.: No Section B Chief Complaint: Surveillance for colon polyps Relevant Family History (Specify if Yes): No Relevant Social History: Tobacco Use (Former smoker) Present Medications: see Short Stay Collaborative assessment Medical History: Significant History (Hypercholesterolemia Hypertension Impacted cerumen of right ear Impaired glucose tolerance Pharyngitis) History of Previous Operations: Relevant previous surgery/procedure and date(s) (History of dental surgery) Allergies: Allergies Allergy/AdvReac Type Severity Reaction Status Date / Time No Known Allergies Allergy Verified 05/22/23 09:14 Review of Systems Sugical H&P ROS: Negative: Constitution, Cardiovascular, Respiratory and Gastrointestinal Exam Surgical H&P Exam: Normal: Heart, Normal: Lungs, Normal: Extremities and Normal: Abdomen Plan Diagnosis/Plan: Unchanged I have reviewed the history and physical and performed a pertinent physical examination on my patient. No changes have occurred unless specified. Time Spent With Patient Time: Total time managing care of this patient today ____ minutes.
[2023-07-09 08:10] VITALS: BP 109/76; PULSE 59; RESP 26; TEMP 36.5; O2SAT 95
--- NOTE | 2023-07-09 08:11 | W.PM.OPN ---
Operative Note Operative Note Date of Service: 07/09/23 Narrative: FLEXIBLE SIGMOIDOSCOPY TILL 30 CMS WITH BIOPSIES AND SNARE POLYPECTOMY Pre-op diagnosis: Surveillance for colon polyps Post-op diagnosis:? Colon polyp, diverticulosis, hemorrhoids Endoscopist:? Hannah Holman MD Anesthesia:?MAC Consent: Indications for the procedure and potential complications of bleeding, perforation, reaction to medications and missed diagnosis were discussed with the patient and informed consent was obtained. Instrument: Olympus PCF H 190 L variable stiffness pediatric colonoscope Monitoring: Vital signs and clinical assessment, intermittent blood pressure monitoring, continuous EKG monitoring, Pulse oximetry and Carbon Dioxide monitoring were done throughout the procedure. Please see anesthesia flowsheet. Procedure: The patient was placed in the left lateral decubitis position and pre-procedure medications were administered. After a digital rectal examination of the ano-rectum, the video colonoscope was inserted into the rectum and advanced through the colon to 30 cms into the sigmoid colon. The colonoscope was slowly withdrawn in a retrograde panoramic fashion and the colon mucosa was carefully examined including a retroflexed view of the rectum. Findings and interventions are described below. Procedure Difficulty: Without difficulty Findings: Sigmoid Colon: A 7-8 mm polyp/nodule at the site of past polypectomy at 25 cms - removed with a cold snare. Biopsies were obtained from the base of the polyp. Moderate diverticulosis Rectum: Normal Ano-rectum: Moderate internal hemorrhoids Colon preparation: Good after some irrigation Impression and Post Procedure Diagnosis: Colonoscopy Findings: One small polyp removed at the site of past polypectomy at 25 cms Moderate diverticulosis seen in the sigmoid colon Moderate hemorrhoids on retroflexed exam. Plan: Await pathology results Patient has an appointment on 08/08/23 in the GI Clinic with Hannah Holman M.D. Repeat Colonoscopy interval based on path results - in 1 year if polyps is adenomatous and 3 years if polyp is hyperplastic . Colon polyps handout was were given in the discharge area
[2023-07-09 08:25] VITALS: BP 115/73; PULSE 57; RESP 20; O2SAT 98
[2023-07-09 08:39] VITALS: BP 119/77; PULSE 51; RESP 16; TEMP 36.4; O2SAT 100
== END 2023-07-09 09:05 | disposition home or self-care (01) ==
PROVIDERS: PCP Internal Medicine; Visit Provider Internal Medicine Gastroenterology
PROC: 0DJD8ZZ Inspection of Lower Intestinal Tract, Via Natural or Artificial Opening Endoscopic (ICD-10-PCS; CPT 45330; principal; 2023-07-09 07:30)
DX: Z12.11 Encounter for screening for malignant neoplasm of colon (principal); K62.1 Rectal polyp; K57.30 Diverticulosis of large intestine without perforation or abscess without bleeding; K64.8 Other hemorrhoids; Z86.010 Personal history of colon polyps; Z87.891 Personal history of nicotine dependence
CPT/HCPCS: 45338; 45331; 88305; J2704

== ENCOUNTER → 2023-07-09 06:32 | Outpatient (BNV) | payer OTHER, SELFPAY | PROVIDERS: PCP Internal Medicine; Visit Provider Internal Medicine Gastroenterology | DX: Z12.11 Encounter for screening for malignant neoplasm of colon (principal); D12.5 Benign neoplasm of sigmoid colon; K57.30 Diverticulosis of large intestine without perforation or abscess without bleeding; K64.8 Other hemorrhoids | CPT/HCPCS: 45338 ==

== ENCOUNTER 2023-12-09 14:01 | Outpatient (AMB) | payer OTHER, SELFPAY ==
--- NOTE | 2023-12-09 14:03 | MHC.OFFVIS ---
Intake Visit Reasons: O/V Impingement LT SHDR last inj 03/20/23 Intake Note: Colton is a 53 year old Right hand dominant male who presents with Left shoulder pain and pins and needles sensation the goes down his arm to his fingers. Patient reports he had a Left shoulder injection on 03/20/2023 and it gave him good relief. He would like to have a repeat Left shoulder injection today. He states that the sensory changes in his left upper extremity are tolerable to him at this time. He denies any weakness in his left shoulder. He does take ibuprofen which gives him mild relief. Allergies No Known Allergies Allergy (Verified 12/09/23 14:14) Medication List - Last Reconciled 12/09/23 by Wilbur Girard MD ibuprofen (Motrin IB) 200 mg PO Q6H PRN ibuprofen 800 mg PO TID lisinopril 10 mg PO DAILY multivitamin (One-A-Day Essential tablet) 1 tab PO DAILY oxycodone-acetaminophen 5-325 mg (Percocet) 1 tab PO Q12H PRN PFSH Medical History Hypercholesterolemia Hypertension Impacted cerumen of right ear Impaired glucose tolerance Pharyngitis Surgical History History of dental surgery Family History Father Liver cancer Mother No problems noted. Brother Substance abuse Sister No problems noted. Son Adopted Daughter No problems noted. Daughter No problems noted. Social History Housing: Apartment Alcohol intake: current Patient Tobacco Use Status: Former Tobacco user Quit Date: 8 years Tobacco use type: Cigarette Years Smoked: quit 2015 e-Cigarette/Vaping Use: Never Used Second Hand Smoke Exposure: No service: No Current occupational status: employed Current occupation: [employer] Cognitive needs: No Hearing needs: No Vision needs: Yes Physical Exam Const Other: Well-nourished well-developed very friendly male awake alert and oriented x3 in no acute distress Extrem Other: Left shoulder examination shows full range of motion when compared to his right shoulder, positive impingement signs, pain with range of motion Office Procedures Joint Injection/Drain Joint Injection/Drain Primary Site: left shoulder Prep: site was prepped using aseptic technique Injected: 40 mg of, DepoMedrol and 1% plain lidocaine Procedure: The patient tolerated the procedure well Coding 75186 - Large joint Procedure code (CPT) selection complete Results Reviewed Results Reviewed: MRI of the patient's left shoulder show severe acromioclavicular joint narrowing, a type 3 acromion, no rotator cuff tearing noted Assessment & Plan Assessment & Plan (1) Impingement syndrome of left shoulder: Code(s): M75.42 - Impingement syndrome of left shoulder Category: Medical Plan Mr. Odonnell presents with left shoulder pain due to impingement syndrome. I had a lengthy discussion with the patient regarding the treatment options. The risks and benefits of a cortisone injection were discussed at length with the patient. The patient wished to proceed. He tolerated the injection well. He will continue with his home stretching program to prevent stiffness. The patient also has sensory changes in his left upper extremity possibly due to cervical spine pathology such as a disc herniation or cervical stenosis. At this point the patient's symptoms are tolerable to him. I will hold off on getting an MRI of his cervical spine. If his sensory changes due worsen in the future I will recommend that the patient get an MRI of his cervical spine for further evaluation. The patient will contact me prior to his follow-up appointment in 3 months should his symptoms worsen in any way. Feel free to call me at any time should questions regarding his orthopedic management arise. I spent 20 minutes in reviewing the patient's records and imaging studies, seeing the patient and documenting in the medical record. Orders: Orders AMB Joint Injection/Aspiration Today M75.42 - Impingement syndrome of left shoulder Coding Level of Care Code Est Pt Level 3 (55649) Diagnoses Impingement syndrome of left shoulder M75.42 CPT Codes Coding - 82538 Large joint: 82097 - Large joint ([id number])
== END 2023-12-09 14:49 | disposition home or self-care (01) ==
PROVIDERS: PCP Internal Medicine; Visit Provider Orthopaedic Surgery
DX: M75.42 Impingement syndrome of left shoulder (principal)
CPT/HCPCS: 20610; 99213

== ENCOUNTER → 2023-12-09 14:01 | Outpatient (BNVA) | payer OTHER, SELFPAY | PROVIDERS: PCP Internal Medicine; Visit Provider Orthopaedic Surgery | DX: M75.42 Impingement syndrome of left shoulder (principal) | CPT/HCPCS: 20610; J1010 ==

== ENCOUNTER 2024-03-11 08:25 | Outpatient (AMB) | payer OTHER, SELFPAY ==
--- NOTE | 2024-03-11 08:27 | MHC.OFFVIS ---
Intake Visit Reasons: O/V Impingement LT SHDR last inj 12/09/23 Intake Note: Colton is a 53 year old male who presents to the office today for Impingement LT SHDR. Last inj 12/09/23. Pt states the injection did give him relief up until about a week ago when the pain started again. He denies any weakness. He continues to take ibuprofen as needed. He would like to hold off on surgery if at all possible. Allergies No Known Allergies Allergy (Verified 03/11/24 08:27) Medication List - Last Reconciled 03/12/24 by Wilbur Girard MD ibuprofen (Motrin IB) 200 mg PO Q6H PRN ibuprofen 800 mg PO TID lisinopril 10 mg PO DAILY multivitamin (One-A-Day Essential tablet) 1 tab PO DAILY PFSH Medical History Hypercholesterolemia Hypertension Impacted cerumen of right ear Impaired glucose tolerance Pharyngitis Surgical History History of dental surgery Family History Father Liver cancer Mother No problems noted. Brother Substance abuse Sister No problems noted. Son Adopted Daughter No problems noted. Daughter No problems noted. Social History Housing: Apartment Alcohol intake: current Patient Tobacco Use Status: Former Tobacco user Tobacco use type: Cigarette Years Smoked: quit 2015 e-Cigarette/Vaping Use: Never Used Second Hand Smoke Exposure: No service: No Current occupational status: employed Current occupation: [employer]/ [employer] Cognitive needs: No Hearing needs: No Vision needs: Yes Physical Exam Const Other: Well-nourished well-developed very friendly male awake alert and oriented x3 in no acute distress Extrem Other: Bilateral upper extremity examination shows good capillary refill, no skin lesions noted, normal sensation light touch Left shoulder examination shows full range of motion when compared to his right shoulder, 5/5 strength with supraspinatus testing, positive impingement signs, no instability Office Procedures Joint Injection/Aspiration Joint Injection/Aspiration Primary Site: left shoulder Prep: site was prepped using aseptic technique Injected: 40 mg of, DepoMedrol and 1% plain lidocaine Procedure: The patient tolerated the procedure well Coding 57597 - Large joint Procedure code (CPT) selection complete Assessment & Plan Assessment & Plan (1) Impingement syndrome of left shoulder: Code(s): M75.42 - Impingement syndrome of left shoulder Category: Medical Plan Mr. Odonnell presents with left shoulder pain due to impingement syndrome. I had a lengthy discussion with the patient regarding the treatment options. The risks and benefits of a left shoulder cortisone injection were discussed at length with the patient. The patient wished to proceed. He tolerated the injection well. He will continue with his range of motion exercises. Will follow up with me on an as-needed basis should his symptoms not plateau at an unacceptable level over the next few months. Feel free to call me at any time should questions regarding his orthopedic management arise. I spent 21 minutes in reviewing the patient's records and imaging studies, seeing the patient and documenting in the medical record. Orders: Orders AMB Joint Injection/Aspiration 03/11/24 M75.42 - Impingement syndrome of left shoulder Coding Level of Care Code Est Pt Level 3 (32059) Diagnoses Impingement syndrome of left shoulder M75.42 CPT Codes Coding - 10539 Large joint: 68236 - Large joint ([id number])
== END 2024-03-11 09:02 | disposition home or self-care (01) ==
PROVIDERS: PCP Internal Medicine; Visit Provider Orthopaedic Surgery
DX: M75.42 Impingement syndrome of left shoulder (principal)
CPT/HCPCS: 20610

== ENCOUNTER → 2024-03-11 08:25 | Outpatient (BNVA) | payer OTHER, SELFPAY | PROVIDERS: PCP Internal Medicine; Visit Provider Orthopaedic Surgery | DX: M75.42 Impingement syndrome of left shoulder (principal) | CPT/HCPCS: 20610; J1010 ==

== ENCOUNTER 2024-08-18 11:27 | Outpatient (AMB) | payer OTHER, SELFPAY ==
--- NOTE | 2024-08-18 11:30 | A.OFFPC_ITS ---
Vital Signs 08/18/24 11:33 Height 6 ft Weight 162 lb 8 oz BMI 22.0 BP 138/80 Blood Pressure Location Lt brachial Position Sitting Pulse 75 Pulse Source Pulse Oximeter Temp 97.1 F Temp Source Skin Pulse Oximetry (%) 98 Oxygen Delivery Method Room Air Intake Visit Reasons: annual exam Intake Note: Patient is here today for a physical. [employer] Worker Required: No Structural Rigger: Not Required per policy Accompanied by: Self / Same As Patient Allergies No Known Allergies Allergy (Verified 08/18/24 11:54) Medication List - Last Reconciled 08/18/24 by Vikki Novak PA-C ibuprofen (Motrin IB) 200 mg PO Q6H PRN lisinopril 10 mg PO DAILY multivitamin (One-A-Day Essential tablet) 1 tab PO DAILY Tobacco use date assessed: 08/18/24 Dental Screening Dental Screen Date: 08/18/24 Did you have a dental visit in the last 12 months?: No Did you have a dental problem in the last 6 months where you did not have access to dental care?: No Was dental information given to patient?: No HPI annual exam HPI Details 53-year-old male with past medical histo ry of hypertension, hypercholesterolemia, impaired glucose tolerance, vitamin B12 deficiency, inguinal hernia last seen by Dr. Ball 09/2022 coming in for annual exam. In review of the notes, [place] [facility] [place] impingement and has been receiving cortisone injections. Patient completed colonoscopy 06/2023 repeat in 3 years. Patient tells us today he has been actively trying to lose weight through dietary modification and lifestyle. He has been intermittent fasting and we will typically eat between the hours of 12 and 20:00. Since losing weight in working on intermittent fasting he has noticed an improvement in his sleep, acid reflux, mood and overall health. He no longer has any shoulder pain or other joint pain. [facility] Medical History Pharyngitis Impacted cerumen of right ear Impaired glucose tolerance Hypertension Hypercholesterolemia Surgical History History of dental surgery Family History Father Liver cancer Mother No problems noted. Brother Substance abuse Sister No problems noted. Son Adopted Daughter No problems noted. Daughter No problems noted. Social History Housing: Apartment Alcohol intake: current Patient Tobacco Use Status: Former Tobacco user Tobacco use type: Cigarette Years Smoked: quit 2015 e-Cigarette/Vaping Use: Never Used Second Hand Smoke Exposure: Yes service: No Current occupational status: employed Current occupation: [employer] Cognitive needs: No Hearing needs: No Vision needs: Yes Questionnaire PHQ-9 Over the last 2 weeks, how often have you been bothered by any of the following problems? 1. Little interest or pleasure in doing things: not at all 2. Feeling down, depressed, or hopeless: not at all 3. Trouble falling or staying asleep, or sleeping too much: not at all 4. Feeling tired or having little energy: not at all 5. Poor appetite or overeating: not at all 6. Feeling bad about yourself - or that you are a failure or have let yourself or your family down: not at all 7. Trouble concentrating on things, such as reading the newspaper or watching television: not at all 8. Moving or speaking so slowly that other people could have noticed. Or the opposite - being so fidgety or restless that you have been moving around a lot more than usual: not at all 9. Thoughts that you would be better off or of hurting yourself in some way: not at all Total score: 0 Depression Screening Interpretation: Negative Depression Screening Done: Yes Source: Developed by Drs. Delano Rai, Viktoria Kraft, Bonilla Godoy and colleagues, with an educational yolande from [employer]. Thrive Questionnaire Date Thrive assessed: 08/18/24 I am a: Patient What is your living situation today?: I have a steady place to live Within the past 12 months, did the food you bought not last and you didn't have the money to get more?: Never true Within the past 12 months, did you worry whether your food would run out before you got money to buy more?: Never true Do you have trouble paying for medicines?: I choose not to answer this question Do you have trouble getting transportation to medical appointments?: No Do you have trouble paying your heating and electricity bill?: No Do you have trouble taking care of your child, family member or friend?: No Do you have trouble with day-to-day activities such as bathing, preparing meals, shopping, managing finances, etc.?: No Are you currently unemployed and looking for a job?: No Are you interested in more education?: I choose not to answer this question Please select the resources that you would like help with: None Currently or been in a relationship where the following occur: No concerns reported THRIVE Score: 0 AUDIT C Alcohol Use Questionnaire (AUDIT-C) 1. How often do you have a drink containing alcohol?: 2-4 times a month 2. How many drinks containing alcohol do you have on a typical day when you are drinking?: 3 or 4 3. How often do you have six or more drinks on one occasion?: Less than monthly Total Score: 4 DINESH-7 AMB Questionnaire DINESH-7 Date DINESH - 7 assessed: 08/18/24 Feeling nervous, anxious, or on edge: 0 = Not at all Not being able to stop or control worryin = Not at all Worrying too much about different things: 0 = Not at all Trouble relaxin = Not at all Being so restless that it is hard to sit still: 0 = Not at all Becoming easily annoyed or irritable: 0 = Not at all Feeling afraid as if something awful might happen: 0 = Not at all Total DINESH-7 score (0-4 normal; 5-9 mild; 10-14 moderate; 15-21 severe): 0 Source: Developed by Drs. Delano Rai, Viktoria Kraft, Bonilla Godoy and colleagues, with an educational yolande from [employer]. Review of Systems Const Denies body aches, Denies fatigue, Denies fever(s), Denies frequent falls, Denies headache(s) and Denies weakness Eyes Reports no additional complaints and Denies change in vision ENT Denies dysphagia, Denies dizziness, Denies facial pain, Denies headache(s), Denies nasal congestion and Denies odynophagia Card Denies chest pain, Denies syncope, Denies irregular heart rhythm, Denies leg edema, Denies lightheadedness and Denies dyspnea Resp Denies cough and Denies dyspnea GI Denies abdominal pain, Denies constipation, Denies dysphagia, Denies dyspepsia, Denies diarrhea, Denies nausea, Denies odynophagia and Denies vomiting Denies dysuria, Denies urinary frequency, Denies urinary hesitancy and Denies urinary urgency Musc Denies back pain and Denies myalgias Skin/Breast Reports system reviewed and no additional complaints, except as documented Neuro Denies dizziness, Denies syncope, Denies frequent falls, Denies headache(s) and Denies weakness Psych Reports no additional complaints Endo Denies fatigue Physical exam (Primary Care) Vital Signs: Last Vital Signs Temp 97.1 F 08/18/24 11:33 Pulse 75 08/18/24 11:33 BP 138/80 08/18/24 11:33 Pulse Ox 98 08/18/24 11:33 Oxygen Delivery Method Room Air 08/18/24 11:33 BMI result Body Mass Index 22.0 Tobacco/Smoking Status: Tobacco use Status Tobacco use date assessed 08/18/24 08/18/24 11:39 Patient Tobacco Use Status Former Tobacco user 08/18/24 11:39 Tobacco use type Cigarette 08/18/24 11:39 e-Cigarette/Vaping Use Never Used 08/18/24 11:39 PHQ-9: PHQ-9 Score PHQ-9: Total score 0 08/18/24 11:39 Depression Screening Interpretation: Negative Thrive Assessment: Date of Thrive Assessment Date Thrive assessed 08/18/24 08/18/24 11:39 Currently or been in a relationship where the following occur: No concerns reported Const General: cooperative, healthy appearing, comfortable and no acute distress Orientation/consciousness: patient oriented x3 HENMT Head: Yes normocephalic Ears: hearing grossly normal bilaterally, external ears normal, TM's normal bilaterally and EAC's normal General nose exam: Normal external nose present Face and sinus: Yes normal facial exam and Yes sinuses nontender Mouth: Normal oral and palatal mucosa present and tongue normal Throat: Yes posterior oropharynx normal Eyes General: appearance normal, both eyes and all related structures Conjunctivae: conjunctivae normal Pupils: Equal, round and reactive pupils present EOM: EOMs intact bilaterally and No Nystagmus present Neck Neck: Yes normal visual inspection, Yes full ROM and Yes no lymphadenopathy Chest Chest palpation & inspection: normal inspection of the chest Resp Effort & Inspection: normal respiratory effort Auscultation: clear to auscultation bilaterally, no crackles, no rales, no rhonchi, no wheezes and breath sounds present Cardio Rate: regular rate Rhythm: regular rhythm Peripheral pulses: radial pulses present and dorsalis pedis present GI Inspection: Yes normal to inspection and No Abdominal wall edema Palpation (GI): Soft to palpation, not firm and nontender Auscultation: normal bowel sounds Rectal Exam - Male: Yes deferred General: Yes no CVA tenderness Back/Spine/Pelvis Back: no CVA tenderness Skin General skin exam: no rashes or lesions noted Neuro General: patient oriented x3 Cranial nerves: Yes Equal, round and reactive pupils present, Yes Midline tongue present, Yes Ability to bilaterally elevate shoulders present and No Nystagmus present Gait exam (Neuro): Normal gait present Extrem General: Yes normal to inspection, Yes full ROM, No no pedal edema and No edema Psych Speech and movement: Normal speech and movement present Affect: normal affect Insight: Good insight present (Psych) Judgement: Good judgement present (Psych) Coding Level of Care Code Est Pt Prev Care 40-64y(54430) Diagnoses Impingement syndrome of left shoulder M75.42 Anxiety F41.9 Low vitamin B12 level E53.8 Primary hypertension I10 Hypertension type: primary hypertension Impaired glucose tolerance R73.02 Hypercholesterolemia E78.00 Annual physical exam Z00.00 Colon cancer screening Z12.11 Tubulovillous adenoma of colon D12.6 Assessment & Plan Assessment & Plan (1) Impingement syndrome of left shoulder: Code(s): M75.42 - Impingement syndrome of left shoulder Category: Medical Plan: Patient was previously following with Orthopedics and receiving cortisone injections last injection 2022. (2) Anxiety: Code(s): F41.9 - Anxiety disorder, unspecified Category: Medical Plan: Dinesh 7 and PHQ-9 negative today. Declines the need for counseling or medical management at this time. 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 I advised patient to start taking blood pressure at home and follow up in 6 weeks for repeat blood pressure check. Also advised if blood pressure is over 140/90 at home to reach out to the office and we will plan to restart lisinopril 10 mg. Avoid salt intake and encourage healthy diet and regular exercise. (5) Impaired glucose tolerance: Code(s): R73.02 - Impaired glucose tolerance (oral) Category: Medical Plan: Decrease the amount of carbohydrates such as pasta, bread, rice, and potatoes and limit the amount of sweets. Although fruits are generally healthy they should be eaten in moderation as they are still high in sugar. Ordered for updated blood work. (6) Hypercholesterolemia: Code(s): E78.00 - Pure hypercholesterolemia, unspecified Category: Medical Plan: Avoid foods that are high in cholesterol such as red meat, fried foods, eggs and baked goods. Triglyceride goal of less than 150 and LDL goal of less than 130. Not currently on medical management. Ordered for updated blood work (7) Annual physical exam: Code(s): Z00.00 - Encounter for general adult medical examination without abnormal findings Category: Medical Plan: Patient is up-to-date on all recommended routine screenings and vaccinations for his age. Colonoscopy is up-to-date and will be due next year. Ordered for updated blood work. (8) Colon cancer screening: Code(s): Z12.11 - Encounter for screening for malignant neoplasm of colon Category: Medical Plan: Patient completed colonoscopy 06/2023 advised to repeat in 3 years will be due 2025. (9) Tubulovillous adenoma of colon: Comment: 2022 scope repeat 3-4 months Code(s): D12.6 - Benign neoplasm of colon, unspecified Category: Medical Plan: 06/2023 colonoscopy completed showing hyperplastic polyps advised to follow up in 3 years. Plan This note was constructed using voice recognition software. While every effort has been made to ensure accuracy and oxidation engineer, still areas may have been included sometimes these areas may affect the content or meeting of the given symptoms. Total time spent caring for the patient today was 30 minutes. This includes time spent before the visit reviewing the chart, time spent during the visit, and time spent after the visit and documentation. Medications: Refilled lisinopril 10 mg PO DAILY 90 tabs 2RF I10 - Essential (primary) hypertension
[2024-08-18 11:33] VITALS: BP 138/80; PULSE 75; TEMP 36.2; O2SAT 98; BMI 22.0
== END 2024-08-18 12:12 | disposition home or self-care (01) ==
PROVIDERS: PCP Internal Medicine
DX: M75.42 Impingement syndrome of left shoulder (principal); F41.9 Anxiety disorder, unspecified; E53.8 Deficiency of other specified B group vitamins; I10 Essential (primary) hypertension; R73.02 Impaired glucose tolerance (oral); E78.00 Pure hypercholesterolemia, unspecified; Z00.00 Encounter for general adult medical examination without abnormal findings; Z12.11 Encounter for screening for malignant neoplasm of colon; D12.6 Benign neoplasm of colon, unspecified

== ENCOUNTER 2024-12-17 06:37 | Outpatient (REF) | payer OTHER, SELFPAY ==
[2024-12-17 06:46] LABS: MANUAL DIFF FLAG NO
[2024-12-17 07:18] LABS: Basophils Percent Auto 0.5 % (0-2); Eosinophils Absolute Auto 0.4 X10*3/uL (0.0-0.4); Hematocrit 49.8 % (42.0-52.0); Hemoglobin 16.9 g/dl (14.0-18.0); Imm Gran Abs Auto 0.02 X10*3/uL (0.00-0.03); Imm Gran Pct Auto 0.3 % (0.0-0.4); Lymphocytes Absolute Auto 1.7 X10*3/uL (1.2-4.9); Lymphocytes Percent Auto 27.4 % (20-40); Mean Corpuscular HGB Conc 33.9 g/dl (31.0-36.0); Mean Corpuscular Hemoglobin 30.6 pg (27.0-33.0); Mean Corpuscular Volume 90.1 fL (80.0-98.0); Mean Platelet Volume 9.8 fL (9.4-12.4); Monocytes Absolute Auto 0.6 X10*3/uL (0.1-1.2); Monocytes Percent Auto 8.7 % (2-11); Neutrophils Absolute Auto 3.6 x10*3/uL (2.0-8.3); Neutrophils Percent Auto 57.1 % (45-73); Platelet Count 241 X10*3/uL (160-400); Red Blood Count 5.53 X10*6/uL (4.60-5.80); Red Cell Distribution Width 12.9 % (11.0-16.0); White Blood Count 6.3 X10*3/uL (4.8-10.8)
[2024-12-17 07:26] LABS: Estimated Average Glucose 97 mg/dL; Hemoglobin A1C 137.6242 umol/L; Total Hemoglobin (HGBA1C) 4346.6634 umol/L
[2024-12-17 07:46] LABS: Alanine Aminotransferase 30 U/L (0-40); Albumin Level 4.4 g/dL (3.5-5.0); Alkaline Phosphatase 70 U/L (39-117); Anion Gap 12 (12-20); Aspartate Amino Transferase 46 U/L (5-37); Bilirubin Total 0.3 mg/dL (0.0-1.0); Blood Urea Nitrogen 23 mg/dL (9-16); Calcium 9.5 mg/dL (8.4-10.2); Carbon Dioxide 27 mmol/L (22-29); Chloride 107 mmol/L (96-108); Cholesterol 190 mg/dL (<200); Estimated Glomerular Filt Rate > 60; Glucose Random 101 mg/dL (60-115); HDL Cholesterol 63 mg/dL (>40); LDL Cholesterol Calculated 114 mg/dL (<100); Potassium 3.9 mmol/L (3.3-5.1); Sodium 142 mmol/L (135-145); Total Protein 7.2 g/dL (6.5-8.0); Triglycerides 68 mg/dL (<150)
[2024-12-17 08:16] LABS: Folate 15.6 ng/mL (> or = 4.0); Prostate Specific Antigen Scr 0.22 ng/mL (<0.05-4.0); Vitamin B12 612 pg/mL (200-900)
[2024-12-17 08:22] LABS: Free T4 (Free Thyroxine) 0.82 ng/dL (0.71-1.85); Thyroid Stimulating Hormone 1.27 uIU/mL (0.32-4.0)
== END 2024-12-17 06:38 | disposition home or self-care (01) ==
LOC: HO.LAB 06:37
PROVIDERS: PCP Internal Medicine; Visit Provider Internal Medicine
DX: E78.00 Pure hypercholesterolemia, unspecified (principal); Z12.5 Encounter for screening for malignant neoplasm of prostate; Z13.1 Encounter for screening for diabetes mellitus
CPT/HCPCS: 36415; 80053; 80061; 82607; 82746; 83036; 84153; 84439; 84443; 85025

== ENCOUNTER 2024-12-18 10:21 | Outpatient (AMB) | payer OTHER, SELFPAY ==
[2024-12-18 10:23] VITALS: BP 138/84; PULSE 56; O2SAT 93; BMI 23.5
--- NOTE | 2024-12-18 10:23 | A.OFFPC_ITS ---
Vital Signs 12/18/24 10:23 Height 6 ft Weight 173 lb 2 oz BMI 23.5 BP 138/84 Blood Pressure Location Lt brachial Position Sitting Pulse 56 Pulse Source Pulse Oximeter Pulse Oximetry (%) 93 Oxygen Delivery Method Room Air Intake Visit Reasons: f/u HTN Automation Operator Required: No Accompanied by: Self / Same As Patient Allergies No Known Allergies Allergy (Verified 12/18/24 10:37) Medication List - Last Reconciled 12/18/24 by Vikki Novak PA-C ibuprofen (Motrin IB) 200 mg PO Q6H PRN lisinopril 10 mg PO DAILY multivitamin (One-A-Day Essential tablet) 1 tab PO DAILY Tobacco use date assessed: 12/18/24 Dental Screening Dental Screen Date: 12/18/24 Did you have a dental visit in the last 12 months?: No Did you have a dental problem in the last 6 months where you did not have access to dental care?: No Was dental information given to patient?: No HPI f/u HTN HPI Details 54-year-old male with past medical histo ry of hypertension, h ypercholesterolemia, impaired glucose tolerance, vitamin B12 deficiency and inguinal hernia last seen 07/2024 coming in for follow up. Presenting with follow-up for hypertension management, seasonal allergies, liver enzyme concerns, and a previously diagnosed bilateral inguinal hernia. He monitors his blood pressure at home, showing improved readings without medication. Seasonal allergies have been managed symptomatically with Zyrtec. The bilateral inguinal hernia presents with reducible bulges but is bothersome occasionally. He started testosterone replacement in August through [facility] on[facility] in[facility] therapy. [facility] Medical History Pharyngitis Impacted cerumen of right ear Impaired glucose tolerance Hypertension Hypercholesterolemia Surgical History History of dental surgery Family History Father Liver cancer Mother No problems noted. Brother Substance abuse Sister No problems noted. Son Adopted Daughter No problems noted. Daughter No problems noted. Social History Housing: Apartment Alcohol intake: current Patient Tobacco Use Status: Former Tobacco user Tobacco use type: Cigarette Years Smoked: quit 2015 e-Cigarette/Vaping Use: Never Used Second Hand Smoke Exposure: Yes service: No Current occupational status: employed Current occupation: [employer] Cognitive needs: No Hearing needs: No Vision needs: Yes Questionnaire PHQ-9 Over the last 2 weeks, how often have you been bothered by any of the following problems? 1. Little interest or pleasure in doing things: not at all 2. Feeling down, depressed, or hopeless: not at all 3. Trouble falling or staying asleep, or sleeping too much: not at all 4. Feeling tired or having little energy: not at all 5. Poor appetite or overeating: not at all 6. Feeling bad about yourself - or that you are a failure or have let yourself or your family down: not at all 7. Trouble concentrating on things, such as reading the newspaper or watching television: not at all 8. Moving or speaking so slowly that other people could have noticed. Or the opposite - being so fidgety or restless that you have been moving around a lot more than usual: not at all 9. Thoughts that you would be better off or of hurting yourself in some way: not at all Total score: 0 Depression Screening Interpretation: Negative Depression Screening Done: Yes Source: Developed by Drs. Delano Rai, Viktoria Kraft, Bonilla Godoy and colleagues, with an educational yolande from [employer]. Thrive Questionnaire Date Thrive assessed: 12/18/24 I am a: Patient What is your living situation today?: I have a steady place to live Within the past 12 months, did the food you bought not last and you didn't have the money to get more?: Never true Within the past 12 months, did you worry whether your food would run out before you got money to buy more?: Never true Do you have trouble paying for medicines?: I choose not to answer this question Do you have trouble getting transportation to medical appointments?: No Do you have trouble paying your heating and electricity bill?: No Do you have trouble taking care of your child, family member or friend?: No Do you have trouble with day-to-day activities such as bathing, preparing meals, shopping, managing finances, etc.?: No Are you currently unemployed and looking for a job?: No Are you interested in more education?: I choose not to answer this question Please select the resources that you would like help with: None Currently or been in a relationship where the following occur: No concerns reported THRIVE Score: 0 AUDIT C Alcohol Use Questionnaire (AUDIT-C) 1. How often do you have a drink containing alcohol?: 2-4 times a month 2. How many drinks containing alcohol do you have on a typical day when you are drinking?: 3 or 4 3. How often do you have six or more drinks on one occasion?: Less than monthly Total Score: 4 LUIGI-7 AMB Questionnaire LUIGI-7 Date LUIGI - 7 assessed: 12/18/24 Feeling nervous, anxious, or on edge: 0 = Not at all Not being able to stop or control worryin = Not at all Worrying too much about different things: 0 = Not at all Trouble relaxin = Not at all Being so restless that it is hard to sit still: 0 = Not at all Becoming easily annoyed or irritable: 0 = Not at all Feeling afraid as if something awful might happen: 0 = Not at all Total LUIGI-7 score (0-4 normal; 5-9 mild; 10-14 moderate; 15-21 severe): 0 Source: Developed by Drs. Delano Rai, Viktoria Kraft, Bonilla Godoy and colleagues, with an educational yolande from [employer]. Review of Systems Const Denies body aches, Denies chills, Denies fever(s), Denies headache(s) and Denies poor appetite Eyes Reports no additional complaints ENT Denies dizziness and Denies headache(s) Card Denies chest pain, Denies lightheadedness and Denies dyspnea Resp Denies dyspnea GI Denies nausea and Denies vomiting Reports no additional complaints Musc Reports no additional complaints and Denies abnormal gait Skin/Breast Reports system reviewed and no additional complaints, except as documented Neuro Denies abnormal gait, Denies dizziness and Denies headache(s) Psych Reports no additional complaints Physical exam (Primary Care) Vital Signs: Last Vital Signs Pulse 56 12/18/24 10:23 BP 138/84 12/18/24 10:23 Pulse Ox 93 12/18/24 10:23 Oxygen Delivery Method Room Air 12/18/24 10:23 BMI result Body Mass Index 23.5 Tobacco/Smoking Status: Tobacco use Status Tobacco use date assessed 12/18/24 12/18/24 10:27 Patient Tobacco Use Status Former Tobacco user 12/18/24 10:27 Tobacco use type Cigarette 12/18/24 10:27 e-Cigarette/Vaping Use Never Used 12/18/24 10:27 PHQ-9: PHQ-9 Score PHQ-9: Total score 0 12/18/24 10:27 Depression Screening Interpretation: Negative Thrive Assessment: Date of Thrive Assessment Date Thrive assessed 12/18/24 12/18/24 10:27 Currently or been in a relationship where the following occur: No concerns reported Const General: cooperative, healthy appearing, comfortable and no acute distress Orientation/consciousness: patient oriented x3 HENMT Head: Yes normocephalic Ears: hearing grossly normal bilaterally General nose exam: Normal external nose present Eyes General: appearance normal, both eyes and all related structures Conjunctivae: conjunctivae normal Neck Neck: Yes full ROM and Yes no lymphadenopathy Resp Effort & Inspection: normal respiratory effort Auscultation: clear to auscultation bilaterally, no crackles, no rales, no rhon chi and no wheezes Cardio Rate: regular rate Rhythm: regular rhythm Skin General skin exam: no rashes or lesions noted Neuro General: patient oriented x3 Gait exam (Neuro): Normal gait present Extrem General: Yes normal to inspection, Yes full ROM and No edema Psych Affect: normal affect Attitude: cooperative Insight: Good insight present (Psych) Judgement: Good judgement present (Psych) Coding Level of Care Code Est Pt Level 3 (24768) Diagnoses Primary hypertension I10 Hypertension type: primary hypertension Impaired glucose tolerance R73.02 Hypercholesterolemia E78.00 Low testosterone R79.89 LFT elevation R79.89 Inguinal hernia bilateral, non-recurrent K40.20 Assessment & Plan Assessment & Plan (1) Hypertension: Code(s): I10 - Essential (primary) hypertension Category: Medical Qualifiers: Hypertension type: primary hypertension Qualified Code(s): I10 - Essential (primary) hypertension Plan: Blood pressure has improved with diet and exercise and patient has not been taking Lisinopril. Avoid salt intake and encourage healthy diet and regular exercise. (2) Impaired glucose tolerance: Code(s): R73.02 - Impaired glucose tolerance (oral) Category: Medical Plan: Decrease the amount of carbohydrates such as pasta, bread, rice, and potatoes and limit the amount of sweets. Although fruits are generally healthy they should be eaten in moderation as they are still high in sugar. Last A1c 5.0% (3) Hypercholesterolemia: Code(s): E78.00 - Pure hypercholesterolemia, unspecified Category: Medical Plan: Avoid foods that are high in cholesterol such as red meat, fried foods, eggs and baked goods. Triglyceride goal of less than 150 and LDL goal of less than 130. (4) Low testosterone: Code(s): R79.89 - Other specified abnormal findings of blood chemistry Category: Medical Plan: Patient has been seeing [facility] therapy for testosterone replacement and follows with them for routine labs as well. Find this beneficial. (5) LFT elevation: Code(s): R79.89 - Other specified abnormal findings of blood chemistry Category: Medical Plan: Currently undergoing workup with for LFT elevation including hepatitis panel, repeat LFTs and abdominal ultrasound. Plan to follow up in 4 months. Discussed the importance of avoidance of excessive amounts of alcohol and Tylenol intake. (6) Inguinal hernia bilateral, non-recurrent: Code(s): K40.20 - Bilateral inguinal hernia, without obstruction or gangrene, not specified as recurrent Category: Medical Plan: Patient complaining of reducible bilateral inguinal hernias which has been persistent for several years. He is unsure if you would like surgical evaluation at this time. Discussed risks and benefits of the surgery as well as it is of lifting in the meantime. Patient agrees to reach out if you would like a referral to General surgery. Plan I will continue monitoring the patient's blood pressure, which is now managed without medication. I have ordered an abdominal ultrasound and a repeat liver enzyme test to follow up on the elevated liver enzymes. I advised the patient to be cautious with alcohol intake, which may affect liver function. The patient is encouraged in current dietary and exercise routines to manage his weight and prediabetes effectively. Bilateral hernias will be monitored for emergency signs; surgical consultation remains an option if desired. Testosterone levels are stable under current hormone replacement therapy, and ongoing lab tests will ensure proper monitoring. A follow-up appointment has been scheduled to review lab results and address any emerging issues. This note was constructed using voice recognition software. While every effort has been made to ensure accuracy and soil checker, still areas may have been included sometimes these areas may affect the content or meeting of the given symptoms. Total time spent caring for the patient today was 20 minutes. This includes time spent before the visit reviewing the chart, time spent during the visit, and time spent after the visit and documentation. Patient was informed and verbally consented to the use of an ambient scribe for clinic note documentation during this visit. Medications: Discontinued lisinopril Discontinued Reason: Patient no longer taking 10 mg PO DAILY 90 tabs 2RF I10 - Essential (primary) hypertension
== END 2024-12-18 10:59 | disposition home or self-care (01) ==
LOC: HO.HMCH 10:21
PROVIDERS: PCP Internal Medicine
DX: I10 Essential (primary) hypertension (principal); R73.02 Impaired glucose tolerance (oral); E78.00 Pure hypercholesterolemia, unspecified; R79.89 Other specified abnormal findings of blood chemistry; K40.20 Bilateral inguinal hernia, without obstruction or gangrene, not specified as recurrent

== ENCOUNTER → 2024-12-18 10:21 | Outpatient (BNVA) | payer OTHER, SELFPAY | PROVIDERS: PCP Internal Medicine ==

== ENCOUNTER 2025-02-12 07:53 | Outpatient (REF) | payer OTHER, SELFPAY ==
--- NOTE | ~2025-02-12 | US_ITS ---
CLINICAL HISTORY: R79.89 - Other specified abnormal findings of blood chemistry US abdomen complete with duplex and color Doppler Comparison: None Findings: The visualized pancreas, aorta, and inferior vena cava are unremarkable. Liver is mildly enlargedand borderline coarsened echotexture. Right lobe 18.2 cm length. Two anechoic lesions probable cysts right lobe measuring 6 x 5 x 4 mm and 6 x 4 x 4 mm. Common duct 2.0 mm diameter. Physiologic distention of the gallbladder. No gallstones or sludge. No gallbladder wall thickening. No pericholecystic fluid. No sonographic Augustine sign. Main portal vein antegrade. Rouleaux flow was demonstrated in the portal vein and distal splenic vein and IVC this may be incidental in a patient with very thin body habitus. Right kidney normal size, 11.9 cm in length. Normal cortical width and echotexture. No solid or cystic renal masses. No nephrolithiasis. No hydronephrosis. Left kidney normal, 10.5 cm in length. Normal cortical width and echotexture. Incidental renal cortical cyst lower pole measuring 0.9 x 0.9 x 1.0 cm.No nephrolithiasis. No hydronephrosis. Spleen measures 12.3 cm. No splenic masses. No ascites. No lymphadenopathy. Impression: 1. Mild hepatosplenomegaly. Borderline coarsened hepatic echotexture reflecting subtle hepatic steatosis or diffuse hepatocellular disease. Incidental probable hepatic cysts right lobe of the liver. MRI may be of further diagnostic value. 2. Rouleaux flow was demonstrated probably an incidental finding in a patient with thin body habitus. 3. Renal cortical cyst lower pole on the left. This document has been electronically signed by: Madi Rain MD on 02/12/2025 14:50:06
== END 2025-02-12 07:54 | disposition home or self-care (01) ==
LOC: HO.US 07:53
PROVIDERS: PCP Internal Medicine; Visit Provider Internal Medicine
DX: R79.89 Other specified abnormal findings of blood chemistry (principal)
CPT/HCPCS: 76700

== ENCOUNTER → 2025-02-12 07:55 | Outpatient (BNV) | payer OTHER, SELFPAY | PROVIDERS: PCP Internal Medicine; Visit Provider Radiology Diagnostic Radiology | DX: R16.0 Hepatomegaly, not elsewhere classified (principal) | CPT/HCPCS: 76700 ==